=== PATIENT | male | born 1955 | race African-American/Black ===

== ENCOUNTER 2016-12-02 13:34 | Emergency (ER) | payer OTHER ==
[~2016-12-02] VITALS: Ht 177.8 cm; Wt 113.4 kg
--- NOTE | 2016-12-02 14:07 | ED GENERAL ADULT ---
History of Present Illness General Chief Complaint: Headache Stated Complaint: GEORGE,NECK PAIN Source: patient Exam Limitations: no limitations Vital Signs & Intake/Output Vital Signs & Intake/Output Vital Signs Date Time Temp Pulse Resp B/P Pulse O2 O2 Flow FiO2 Ox Delivery Rate 12/02 1652 85 130/70 12/02 1510 97.3 84 20 126/69 98 Room Air 12/02 1450 97.7 89 18 197/78 12/02 1450 97.7 89 18 197/78 12/02 1343 97.7 89 18 197 99 Room Air Room Air Allergies Coded Allergies: NO KNOWN ALLERGIES (NO) (12/26/10) Reconcile Medications Amlodipine Besylate 10 MG TABLET 1 TAB PO DAILY BP (Reported) Ascorbate Calcium (Vitamin C) 500 MG TABLET 1 TAB PO DAILY SUPPLEMENT ( Reported) Aspirin (Ecotrin*) 81 MG TABLET.DR 1 TAB PO DAILY HEART/BLOOD (Reported) Atorvastatin Calcium 40 MG TABLET 1 TAB PO QPM CHOLESTEROL (Reported) B Complex & C No.20/Folic Acid (Renal Caps Softgel) 1 MG CAPSULE 1 CAP PO DAILY SUPPLEMENT (Reported) Calcitriol 0.25 MCG CAPSULE 1 CAP PO DAILY RENAL (Reported) Cholecalciferol (Vitamin D3) (Vitamin D) 2,000 UNIT TABLET 1 TAB PO DAILY SUPPLEMENT (Reported) Cyclobenzaprine HCl 5 MG TABLET 1 TAB PO TIDPRN NECK PAIN Dorzolamide HCl/Timolol Maleat (Dorzolamide-Timolol Eye Drops) 22.3 MG-6.8 MG/ML DROPS 1 GTT OPH TID BOTH EYES (Reported) Ferrous Sulfate 325 MG (65 MG IRON) TABLET 1 TAB PO TID SUPPLEMENT (Reported) Furosemide 40 MG TABLET 1 TAB PO DAILY DIURETIC (Reported) Gabapentin 100 MG CAPSULE 1 CAP PO TID NERVE PAIN (Reported) Insulin Aspart, Recombinant (Novolog Flexpen) 100 UNIT/ML INSULN.PEN DM ( Reported) Insulin Degludec (Tresiba Flextouch U-200) 200 UNIT/ML (3 ML) INSULN.PEN 8 UNITS SC BID DM (Reported) Latanoprost 0.005 % DROPS 1 GTT OPH QPM BOTH EYES (Reported) Levothyroxine Sodium (Synthroid) 137 MCG TABLET 1 TAB PO DAILY THYROID ( Reported) Magnesium 250 MG TABLET 1 TAB PO TID SUPPLEMENT (Reported) Metoprolol Tartrate 25 MG TABLET 1 TAB PO BID HEART/BP (Reported) Pantoprazole Sodium 40 MG TABLET.DR 1 TAB PO DAILY GI (Reported) Tamsulosin HCl 0.4 MG CAP.ER.24H 1 CAP PO DAILY (Reported) Tramadol HCl 50 MG TABLET 1 TAB PO Q6P PRN HEADACHE/NECK PAIN Triage Note: TRIAGE: 61 Y/O MALE PRESENTS C/O RIGHT SIDED HEADACHE AND NECK PAIN X 3-4 DAYS. "ONE OF THE WORST HEADACHES OF MY LIFE." REPORTS HISTORY OF STROKE IN 2010. LEFT SIDED DEFICITS SICNE STROKE, EVIDENT IN TRIAGE DANETTE IN LEFT HAND. MANUAL BP IN TRIAGE: 178/78 Triage Nurses Notes Reviewed? yes Onset: Abrupt Duration: day(s): (3-4), constant, continues in ED Timing: recent history Injury Environment: home Severity: moderate, severe No Modifying Factors: none HPI: 61-year-old male comes into emergency room with complaints of right posterior headache and right-sided neck pain has been going on for the past few days. He denies any vomiting. Denies any chest pain shortness of breath. He has a history of previous CVA with left-sided deficits. He sees Dr. Page. Denies any fever chills denies any trauma. Denies any other associated symptoms at this time. (GILMA DUENAS) Past History Travel History Traveled to [place] past 21 day No Medical History Any Pertinent Medical History? see below for history Neurological: CVA Cardiovascular: hypertension, hyperlipidemia Gastrointestinal: CONSTIPATION Endocrine: diabetes Surgical History Surgical History: non-contributory Psychosocial History Who do you live with Spouse Services at Home None What is your primary language Moldovan Tobacco Use: Never used ETOH Use: denies use Illicit Drug Use: denies illicit drug use Family History Hx Contributory? No (GILMA DUENAS) Review of Systems Review of Systems Constitutional: Reports: no symptoms. EENTM: Reports: no symptoms. Respiratory: Reports: no symptoms. Cardiovascular: Reports: no symptoms. GI: Reports: no symptoms. Genitourinary: Reports: no symptoms. Musculoskeletal: Reports: see HPI. Skin: Reports: no symptoms. Neurological/Psychological: Reports: see HPI. Hematologic/Endocrine: Reports: no symptoms. Immunologic/Allergic: Reports: no symptoms. All Other Systems: Reviewed and Negative (GILMA DUENAS) Physical Exam Physical Exam General Appearance: well developed/nourished, no apparent distress, alert Head: atraumatic, normal appearance Eyes: Bilateral: EOMI. Ears, Nose, Throat: normal pharynx, normal ENT inspection, hearing grossly normal Neck: normal inspection, full range of motion, no bruit appreciated Respiratory: normal breath sounds, no respiratory distress Cardiovascular: regular rate/rhythm Gastrointestinal: soft, non-tender Back: normal inspection Extremities: normal inspection, normal range of motion Neurologic/Psych: awake, alert, oriented x 3, 4/5 strength left side Skin: intact, normal color Core Measures ACS in differential dx? Yes CVA/TIA Diagnosis: No Severe Sepsis Present: No Septic Shock Present: No (SANGEETA VASQUEZ,GILMA) Progress Differential Diagnoses I considered the following diagnoses in my evaluation of the patient: CVA, migraine, intracranial bleed, carotid artery dissection, muscle strain, NV, aortic dissection, Plan of Care: Orders Procedure Date/time Status TROPONIN LEVEL 12/02 1404 Complete PARTIAL THROMBOPLASTIN TIME 12/02 1404 Complete PROTHROMBIN TIME 12/02 140 Complete COMPREHENSIVE METABOLIC PANEL 12/02 140 Complete CBC WITHOUT DIFFERENTIAL 12/02 140 Complete EKG 12/02 1356 Active Laboratory Tests 12/02/16 1407: Anion Gap 10, Estimated GFR 16 L, BUN/Creatinine Ratio 15.8, Glucose 197 H, Calcium 9.2, Total Bilirubin 0.4, AST 16 L, ALT 28, Alkaline Phosphatase 130 H , Troponin I < 0.01, Total Protein 7.9, Albumin 3.9, Globulin 4.0, Albumin/ Globulin Ratio 1.0 L, PT 10.7, INR 1.02, APTT 33, CBC w Diff NO MAN DIFF REQ, RBC 4.13 L, MCV 79.7 L, MCH 25.3 L, RDW 15.1 H, MPV 7.5, Gran % 72.5, Lymphocytes % 16.4 L, Monocytes % 8.0, Eosinophils % 2.7, Basophils % 0.4, Absolute Granulocytes 6.1, Absolute Lymphocytes 1.4, Absolute Monocytes 0.7 H, Absolute Eosinophils 0.2, Absolute Basophils 0, PUBS MCHC 31.8 L Diagnostic Imaging: Viewed by Me: CT Scan, Ultrasound. Discussed w/RAD: CT Scan, Ultrasound. Radiology Impression: SERVICE DATE: 12/02/16-1405 EXAM TYPE: CAT - CT HEAD WO IV CONTRAST EXAMINATION: CT HEAD WITHOUT CONTRAST CLINICAL INFORMATION: 61-year- old man with severe headache. COMPARISON: 01/31/[address] TECHNIQUE: Contiguous axial imaging was performed from the skull base to vertex without intravenous administration of contrast. DLP: 601 mGy-cm FINDINGS: No intracranial mass, hemorrhage, midline shift, or extra-axial collection is appreciated. Mild chronic microvascular ischemic changes are seen throughout the supratentorial white matter. A small chronic lacunar infarct is noted in the right thalamus. Nodular mineralization along the right anterior falx is unchanged. The ventricles and sulcal spaces are mildly prominent due to chronic volume loss. A small mucus retention cyst is visible in the left sphenoid sinus. IMPRESSION: No acute intracranial pathology. DICTATED BY: JAMES ALANIZ MD DATE/ TIME DICTATED:12/02/161456 AUTOMATIC SPOOLER OPERATOR:HAYLEY , EXAM TYPE: US - US- CAROTID-VERTEBRAL DOPPLER EXAMINATION: US DUPLEX CAROTID AND VERTEBRAL CLINICAL INFORMATION: Assess for carotid artery dissection. Severe right-sided neck pain. COMPARISON: Carotid ultrasound 02/01/2010. TECHNIQUE: Real-time ultrasound and Doppler techniques (integrating B-mode 2D vascular images, Doppler spectral analysis and color flow Doppler imaging) were utilized to interrogate the extracranial carotid and vertebral arteries bilaterally. The degree of stenosis determined by criteria similar to NASCET. FINDINGS: Peak systolic velocity within the right common carotid artery is 109 cm/s. Peak systolic velocity in the proximal right internal carotid artery is 101 cm/s. No evidence of carotid artery dissection. There is atherosclerotic plaque in the carotid vessels. Flow within the right vertebral artery was not visualized. Peak systolic velocity within the left common carotid artery is 128 cm/s. Peak systolic velocity within the left internal carotid artery is 45 cm/s. Peak systolic velocity in the distal left internal carotid artery is 79 cm/s; no parvus-tardus waveform demonstrated. No evidence of carotid artery dissection. There is atherosclerotic plaque in the carotid vessels. Antegrade flow within the left vertebral artery is noted. IMPRESSION: 1. Doppler flow is not visualized in the right vertebral artery (vascular flow demonstrated in the right vertebral artery on examination 02/01/2010). Right vertebral artery dissection is not excluded. This can be further evaluated with CT or MR angiogram of the neck. 2. No evidence of carotid artery dissection. 3. Scattered atherosclerotic disease without evidence of hemodynamically significant stenosis. DICTATED BY: KERLINE LOZANO MD DATE/TIME DICTATED:12/02/161442 AUTOMATIC SPOOLER OPERATOR:HAYLEY DATE/TIME TRANSCRIBED:1442 Initial ED EKG: normal intervals, normal p-waves, normal sinus rhythm, rate (77) (SANGEETA VASQUEZ,GILMA) Departure Departure Disposition: HOME OR SELF CARE Condition: Stable Clinical Impression Primary Impression: Headache Referrals: CESAR PAGE MD (PCP/Family) Additional Instructions: Take tramadol and Flexeril as prescribed. Follow-up with your primary care doctor. Please return to the emergency room if you have any increasing headache , vomiting, vision loss, chest pain, shortness of breath, slurred speech, or any other concerns worsening symptoms. Please go over all results of today's visit with your primary care doctor. Contact your primary care doctor to let them know you were here in the emergency room. There may be nonspecific findings which may not be related to your visit today here in the emergency room but may require further evaluation and chronic monitoring by your primary care doctor. If you had a laceration today the chance of foreign body always remains. You should follow-up with your primary care doctor for recheck in 3-5 days for a wound check. If you had an x-ray done there is a chance that a fracture could have been missed on initial read and you should follow-up with your primary care doctor for repeat x-rays if symptoms persist. If your blood pressure was elevated here in the emergency room please have rechecked by her primary care doctor within the next 48 hours by your primary care doctor. If you were prescribed a narcotic here in the emergency room or any type of controlled substances you're not allowed to drive while taking this medication or operate any type of heavy machinery. Narcotics can make you feel lightheaded dizziness nausea and can cause constipation. You may need to picking belt operator a stool softener. Thank you for choosing [facility] emergency room. Please return to the emergency room immediately if you have any other concerns worsening of symptoms. Departure Forms: Customer Survey General Discharge Information Prescriptions: Current Visit Scripts Tramadol HCl 1 TAB PO Q6P PRN HEADACHE/NECK PAIN #20 TAB Cyclobenzaprine HCl 1 TAB PO TIDPRN #15 TAB Comments 12/02/2016 6:43:15 PM Patient clinically looks well. He is nontoxic-appearing. Patient's blood pressure has significantly improved after he took his oral medications here. In regards to the pain it is likely more muscular in nature. There is no evidence of carotid artery dissection and there is no evidence of intracranial bleed. Patient has no neurological deficits. He has no chest pain or shortness of breath return emergency room. Case was discussed with Dr. romeo and he agrees with plan of care. Patient will follow up with his primary care doctor. Patient will return if any other concerns worsening symptoms. Patient understands and agrees with plan of care. Reevaluated multiple times and continued to remain in no apparent distress. (GILMA DUENAS) PA/ECONOMIC HISTORY TEACHER Co-Sign Statement Statement: ED Attending supervision documentation- x I saw and evaluated the patient. I have also reviewed all the pertinent lab results and diagnostic results. I agree with the findings and the plan of care as documented in the PA's/ECONOMIC HISTORY TEACHER's documentation. [] I have reviewed the ED Record and agree with the PA's/ECONOMIC HISTORY TEACHER's documentation. [] Additions or exceptions (if any) to the PAs/ECONOMIC HISTORY TEACHER's note and plan are summarized below: [] (IVAN ROMEO MD) Critical Care Note Critical Care Note Critical Care Time: non-applicable (GILMA DUENAS)
[2016-12-02 14:14] LABS: ABSOLUTE BASOPHIL COUNT 0 /CUMM (0.0-0.2); ABSOLUTE EOSINOPHIL COUNT 0.2 /CUMM (0.0-0.7); ABSOLUTE GRANULOCYTE CT 6.1 /CUMM (1.4-6.5); ABSOLUTE LYMPH COUNT 1.4 /CUMM (1.2-3.4); ABSOLUTE MONOCYTE COUNT 0.7 /CUMM (0.10-0.60); BASOPHIL % 0.4 % (0.0-2.0); EOSINOPHIL % 2.7 % (0-5); GRANULOCYTE % 72.5 % (42.2-75.2); HEMATOCRIT 32.9 % (42-52); MEAN CORPUSCULAR HGB 25.3 PG (27.0-31.0); MEAN CORPUSCULAR HGB CONC 31.8 G/DL (33.0-37.0); MEAN CORPUSCULAR VOLUME 79.7 FL (80.0-94.0); MEAN PLATELET VOLUME 7.5 FL (7.4-10.4); PLATELET COUNT 253 /CUMM (130-400); RBC DISTRIBUTION WIDTH 15.1 % (11.5-14.5); RED BLOOD CELL CT 4.13 /CUMM (4.70-6.10); WHITE BLOOD CELL COUNT 8.4 /CUMM (4.8-10.8)
[2016-12-02 14:26] LABS: PT 10.7 SEC (9.4-12.5); PTT 33 SEC (25-37)
--- NOTE | 2016-12-02 14:54 | ULTRASOUND REPORT ---
EXAMINATION: US DUPLEX CAROTID AND VERTEBRAL CLINICAL INFORMATION: Assess for carotid artery dissection. Severe right-sided neck pain. COMPARISON: Carotid ultrasound 02/01/2010. TECHNIQUE: Real-time ultrasound and Doppler techniques (integrating B-mode 2D vascular images, Doppler spectral analysis and color flow Doppler imaging) were utilized to interrogate the extracranial carotid and vertebral arteries bilaterally. The degree of stenosis determined by criteria similar to NASCET. FINDINGS: Peak systolic velocity within the right common carotid artery is 109 cm/s. Peak systolic velocity in the proximal right internal carotid artery is 101 cm/s. No evidence of carotid artery dissection. There is atherosclerotic plaque in the carotid vessels. Flow within the right vertebral artery was not visualized. Peak systolic velocity within the left common carotid artery is 128 cm/s. Peak systolic velocity within the left internal carotid artery is 45 cm/s. Peak systolic velocity in the distal left internal carotid artery is 79 cm/s; no parvus-tardus waveform demonstrated. No evidence of carotid artery dissection. There is atherosclerotic plaque in the carotid vessels. Antegrade flow within the left vertebral artery is noted. IMPRESSION: 1. Doppler flow is not visualized in the right vertebral artery (vascular flow demonstrated in the right vertebral artery on examination 02/01/2010). Right vertebral artery dissection is not excluded. This can be further evaluated with CT or MR angiogram of the neck. 2. No evidence of carotid artery dissection. 3. Scattered atherosclerotic disease without evidence of hemodynamically significant stenosis.
--- NOTE | 2016-12-02 15:02 | CT SCAN REPORT ---
EXAMINATION: CT HEAD WITHOUT CONTRAST CLINICAL INFORMATION: 61-year-old man with severe headache. COMPARISON: 01/31/[address] TECHNIQUE: Contiguous axial imaging was performed from the skull base to vertex without intravenous administration of contrast. DLP: 601 mGy-cm FINDINGS: No intracranial mass, hemorrhage, midline shift, or extra-axial collection is appreciated. Mild chronic microvascular ischemic changes are seen throughout the supratentorial white matter. A small chronic lacunar infarct is noted in the right thalamus. Nodular mineralization along the right anterior falx is unchanged. The ventricles and sulcal spaces are mildly prominent due to chronic volume loss. A small mucus retention cyst is visible in the left sphenoid sinus. IMPRESSION: No acute intracranial pathology.
[2016-12-02] MEDS ORDERED: CYCLOBENZAPRINE5 M2 PO (16:29)
[2016-12-02] MEDS ORDERED: TRAMADOL HCL50 M1 PO (16:29)
[2016-12-02] MEDS ORDERED: FUROSEMIDE40 M1 PO (16:38)
[2016-12-02] MEDS ORDERED: AMLODIPINE BESY10 M1 PO (16:38)
[2016-12-02] MEDS ORDERED: SYNTHROID137 MCG PO (16:39)
[2016-12-02] MEDS ORDERED: NOVOLOG FL100 UNIT/1 SC (16:39)
[2016-12-02] MEDS ORDERED: ATORVASTATIN CA40 M1 PO (16:42)
[2016-12-02] MEDS ORDERED: METOPROLOL TART25 M1 PO (16:42)
[2016-12-02] MEDS ORDERED: RENAL CAPS SOFTG1 MG PO (16:43)
[2016-12-02] MEDS ORDERED: VITAMIN C500 M6 PO (16:44)
[2016-12-02] MEDS ORDERED: VITAMIN D2000 UNI1 PO (16:44)
[2016-12-02] MEDS ORDERED: FERROUS SULFAT325 M3 PO (16:45)
[2016-12-02] MEDS ORDERED: MAGNESIUM250 M3 PO (16:45)
[2016-12-02] MEDS ORDERED: PANTOPRAZOLE SO40 M1 PO (16:46)
[2016-12-02] MEDS ORDERED: TAMSULOSIN HCL0.4 M1 PO (16:46)
[2016-12-02] MEDS ORDERED: GABAPENTIN100 M2 PO (16:46)
[2016-12-02] MEDS ORDERED: ASPIRIN EC81 M1 PO (16:47)
[2016-12-02] MEDS ORDERED: CALCITRIOL0.25 MC1 PO (16:48)
[2016-12-02] MEDS ORDERED: TRESIBA FL200 UNIT/1 SC (16:48)
[2016-12-02] MEDS ORDERED: DORZOLAMIDE-TIM10 ML OPH (16:49)
[2016-12-02] MEDS ORDERED: LATANOPROST2.5 ML OPH (16:49)
[2016-12-02 16:52] VITALS: BP 130/70
== END 2016-12-02 16:53 ==
LOC: ERH 13:34
PROVIDERS: Physician Assistant Medical
DX: R51 Headache (principal)
CPT/HCPCS: 93005; 93010